=== PATIENT | male | born 2000 | race African-American/Black ===

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

== ENCOUNTER → 2019-04-07 | Outpatient (CLI) | payer OTHER ==
--- NOTE | 2019-04-07 10:37 | RADIOLOGY REPORT (SQ) ---
EXAM DESCRIPTION: MRI LT LOWER JOINT WITHOUT COMPLETED DATE/TIME: 04/07/2019 9:32 am REASON FOR STUDY: LEFT KNEE PAIN COMPARISON: None. TECHNIQUE: Leftknee images acquired and stored on PACS. Multiplanar images include fat sensitive se quences as T1, water sensitive sequences as FST2 or STIR, cartilage sensitive sequences as FSPD, and gradient echo sequences. LIMITATIONS: Up to moderate limiting motion artifact on many sequences. FINDINGS: JOINT AND BURSAE: No effusion. BONE CORTEX AND MARROW: No alteration of signal to suggest marrow replacement. No worrisome bone lesi ons. No occult fracture. ACL: Poorly seen. Diminutive appearance. Significant tear is not excluded. PCL: Intact. MCL: Intact. No periligamentous edema or fluid. LCL: Intact. No periligamentous edema or fluid. MEDIAL MENISCUS: Tear throughout the posterior root and posterior horn, relatively macerated appearan ce here with extrusion. LATERAL MENISCUS: Complex tear in the posterior horn and root with a centrally displaced fragment sug gested. MEDIAL COMPARTMENT: Denuded hyaline cartilage in the weight-bearing femoral condyle. Subchondral lashonda ma regionally. LATERAL COMPARTMENT: Cartilage preserved. No bone bruises or reactive marrow edema. No osteophytes. PATELLA: No chondromalacia. No subchondral cysts. Medial and lateral retinacula intact. EXTENSOR MECHANISM: Intact. Quadriceps and patella tendons normal. SOFT TISSUES: Adjacent muscles and subcutaneous tissues normal. Normal flow void in popliteal artery and vein. OTHER: No other significant finding. IMPRESSION: 1. Extensive medial meniscus tear. 2. Extensive lateral meniscus tear with centrally displaced fragment. 3. 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 4. ACL difficult to visualize, deficiency suspected. TECHNICAL DOCUMENTATION: JOB ID: [id number]- All Rights Reserved Reading location - IP/workstation name: [email or web address]
== END ==
LOC: RAD 08:42
PROVIDERS: ATTEND Family Medicine
DX: M25.562 Pain in left knee (principal); S83.242S Other tear of medial meniscus, current injury, left knee, sequela; X58.XXXS Exposure to other specified factors, sequela